=== PATIENT | male | born 1980 | race Asian ===

== ENCOUNTER 2022-11-27 04:10 | Day surgery (SDC) | payer OTHER ==
[2022-11-27] VITALS (242 sets, daily range): BP systolic 88–199; BP diastolic 45–155
[~2022-11-27] VITALS: Ht 165.1 cm; Wt 76.7 kg
[2022-11-27 08:09] LABS: BASO% 0.9 % (0-3); EOS% 2.2 % (0-8); HEMATOCRIT 48.7 % (39.0-50.0); HEMOGLOBIN 16.2 g/dl (14.0-18.0); IMMATURE GRANULOCYTES 0.2 % (0.0-5.0); LYMPH% 8.8 % (15-41); MEAN CELL VOLUME 82.1 fL CALC (80.0-100.0); MEAN CORPUSCULAR HGB 27.3 pG CALC (26.0-32.0); MEAN CORPUSCULAR HGB CONC 33.3 g/dL CAL (32.0-36.0); MONO% 6.7 % (2-13); NEUT# 7.28 thou/uL (1.82-7.42); NEUT% 81.2 % (42-76); RED BLOOD COUNT 5.93 mill/uL (4.70-6.10); RED CELL DISTRI WIDTH 12.5 % (11.5-15.5)
[2022-11-27] MEDS ORDERED: LISINOPRIL20 M1 PO (08:22)
[2022-11-27] MEDS ORDERED: CLONIDINE0.1 MG PO ×2 (08:22→14:20)
[2022-11-27] MEDS ORDERED: SERTRALINE100 MG PO (08:23)
[2022-11-27 08:28] LABS: ALBUMIN 4.8 g/dL (3.2-5.0); ALKALINE PHOSPHATASE 75 u/l (38-126); ANION GAP 13 (6-22 (CALC)); BILIRUBIN, TOTAL 0.5 mg/dL (0.2-1.3); BUN 23 mg/dL (9-20); BUN/CREATININE RATIO 21 (12-20 (CALC)); CARBON DIOXIDE 29 mmol/l (22-30); CHLORIDE 100 mmol/l (95-108); CREATININE 1.1 mg/dL (0.7-1.3); GFR FOR AFR.AMER. > 60 ML/MIN (>=60 (CALC)); GFR OTHER RACES > 60 ML/MIN (>=60 (CALC)); POTASSIUM 4.2 mmol/l (3.5-5.1); SGOT/AST 27 u/l (17-59); SODIUM 137 mmol/l (137-146); TOTAL PROTEIN 7.4 g/dL (6.3-8.2)
[2022-11-27] MEDS ORDERED: KLONOPIN2 MG PO (14:20)
[2022-11-27] MEDS ORDERED: NALTREXONE50 MG PO (14:20)
[2022-11-28 03:37] VITALS: BP 151/78
[2022-11-28 04:26] LABS: BASO% 0.2 % (0-3); HEMATOCRIT 43.6 % (39.0-50.0); HEMOGLOBIN 14.6 g/dl (14.0-18.0); IMMATURE GRANULOCYTES 0.1 % (0.0-5.0); LYMPH% 7.8 % (15-41); MEAN CELL VOLUME 82.3 fL CALC (80.0-100.0); MEAN CORPUSCULAR HGB 27.5 pG CALC (26.0-32.0); MEAN CORPUSCULAR HGB CONC 33.5 g/dL CAL (32.0-36.0); MONO% 4.3 % (2-13); NEUT# 7.2 thou/uL (1.82-7.42); NEUT% 87.6 % (42-76); RED BLOOD COUNT 5.3 mill/uL (4.70-6.10); RED CELL DISTRI WIDTH 12.7 % (11.5-15.5)
[2022-11-28 05:01] LABS: ALBUMIN 4.2 g/dL (3.2-5.0); ALKALINE PHOSPHATASE 63 u/l (38-126); ANION GAP 13 (6-22 (CALC)); BILIRUBIN, TOTAL 0.4 mg/dL (0.2-1.3); BUN 15 mg/dL (9-20); BUN/CREATININE RATIO 16 (12-20 (CALC)); CARBON DIOXIDE 26 mmol/l (22-30); CHLORIDE 105 mmol/l (95-108); CREATININE 0.9 mg/dL (0.7-1.3); GFR FOR AFR.AMER. > 60 ML/MIN (>=60 (CALC)); GFR OTHER RACES > 60 ML/MIN (>=60 (CALC)); MAGNESIUM 2.2 mg/dL (1.6-2.3); POTASSIUM 3.6 mmol/l (3.5-5.1); SGOT/AST 34 u/l (17-59); SODIUM 141 mmol/l (137-146); TOTAL PROTEIN 6.9 g/dL (6.3-8.2)
[2022-11-28 07:38] VITALS: BP 118/77
[2022-11-28 08:22] VITALS: BP 118/77
== END 2022-11-28 15:45 | disposition home or self-care (01) | DRG 897 ==
LOC: ANR 04:10 → MS2 04:12 → ANR 12:00 → MS2 17:25 → ANR 11-28 15:45
PROVIDERS: ATTEND Anesthesiology Critical Care Medicine
DX: F11.20 Opioid dependence, uncomplicated (principal)
CPT/HCPCS: J2060; J2354; J3475